=== PATIENT | female | born 1985 | race Caucasian/White ===

== ENCOUNTER 2024-02-06 10:32 | Inpatient (IN) | payer SELFPAY ==
[~2024-02-06] VITALS: Ht 160 cm; Wt 66.7 kg
[2024-02-06] MEDS ORDERED: METHYLERGONOVINE 0.2 MG/ML AMP IM PRN (11:00)
[2024-02-06] MEDS ORDERED: CARBOPROST 250 MCG/ML AMP IM PRN (11:00)
[2024-02-06] MEDS ORDERED: OXYTOCIN 10 UNITS/ML VIAL IM SCH (11:00)
[2024-02-06] MEDS ORDERED: LACTATED RINGERS 500 ML IV ONE (11:00)
[2024-02-06 11:53] LABS: BASOPHILS # (AUTO) 0.1 K/uL (0.00-0.22); BASOPHILS % (AUTO) 0.8 % (0.0-2.0); EOSINOPHILS # (AUTO) 0.1 K/uL (0-0.4); EOSINOPHILS % (AUTO) 0.7 % (0.0-4.0); HEMATOCRIT 37.1 % (36-48); HEMOGLOBIN 12.9 g/dL (12.0-16.0); LYMPHOCYTES # (AUTO) 2.5 K/uL (2.5-16.5); LYMPHOCYTES % (AUTO) 20.4 % (20.5-51.1); MEAN CORPUSCULAR HEMOGLOBIN 32 pg (27-31); MEAN CORPUSCULAR HGB CONC 35 g/dL (33-37); MEAN CORPUSCULAR VOLUME 91.6 fL (80-94); MONOCYTES % (AUTO) 7.9 % (1.7-9.3); NEUTROPHILS # (AUTO) 8.6 K/uL (1.8-7.7); NEUTROPHILS % (AUTO) 70.2 % (42.2-75.2); PLATELET COUNT (AUTO) 229 K/uL (140-450); RED BLOOD CELL COUNT(AUTO) 4.05 MIL/uL (4.20-5.40); RED CELL DISTRIBUTION WIDTH 13.2 % (11.6-13.7); WHITE BLOOD COUNT (AUTO) 12.3 K/uL (4.8-10.8)
[2024-02-06 12:15] LABS: INR 0.84 (0.8-1.2); PARTIAL THROMBOPLASTIN TIME 25.2 secs (22-35.6); PROTHROMBIN TIME 8.9 secs (10.8-13.4)
[2024-02-06 12:17] LABS: ALBUMIN 2.3 g/dL (3.4-5.0); ANION GAP 13.9 (8-16); CALCIUM 8.5 mg/dL (8.5-10.1); CARBON DIOXIDE 21.1 mmol/L (21-32); CREATININE 0.7 mg/dL (0.6-1.3); TOTAL BILIRUBIN 0.1 mg/dL (0.0-1.0); TOTAL PROTEIN, SERUM 6.3 g/dL (6.4-8.2)
[2024-02-06 12:23] LABS: APPEARANCE,URINE CLEAR (CLEAR); BILIRUBIN,URINE NEGATIVE (NEGATIVE); BLOOD, URINE NEGATIVE (NEGATIVE); COLOR,URINE YELLOW (YELLOW); LEUKOCYTE ESTERASE ,URINE NEGATIVE (NEGATIVE); NITRITE, URINE NEGATIVE (NEGATIVE); PROTEIN,URINE NEGATIVE (NEGATIVE); UGLUCOSE NEGATIVE (NEGATIVE); UROBILINOGEN,URINE 0.2 EU/dL (0.2 - 1)
[2024-02-06 12:33] LABS: AMPHETAMINE, URINE NEGATIVE ng/ml (NEG <=1000); BARBITURATE, URINE NEGATIVE ng/ml (NEG <=200); BENZODIAZEPINE, URINE NEGATIVE ng/mL (NEG <=200); CANNABINOID, URINE NEGATIVE ng/mL (NEG <=50); COCAINE, URINE NEGATIVE ng/mL (NEG <=300); OPIATE, URINE NEGATIVE ng/mL (NEG <=2000); PHENCYCLIDINE SCREEN,URINE NEGATIVE ng/mL (NEG <=25)
[2024-02-06] MEDS: LACTATED RINGERS 1,000 ML IV SCH (13:30)
[2024-02-06] MEDS: MISOPROSTOL 25 MCG TAB VG SCH (13:31)
[2024-02-06 16:05] VITALS: BP 97/53; PULSE 77; RESP 18; TEMP 97
[2024-02-06] MEDS ORDERED: OXYTOCIN/0.9 % SODIUM CHLORIDE 500 ML IV ONE (20:13)
[2024-02-06] MEDS: OXYTOCIN/0.9 % SODIUM CHLORIDE 500 ML IV SCH (20:28)
[2024-02-06] MEDS ORDERED: diphenhydrAMINE 50 MG/ML VIAL ONE (22:21)
[2024-02-06] MEDS ORDERED: CITRIC ACID/SODIUM CITRATE 30 ML UDC PO ONE (22:45)
[2024-02-07] MEDS: TERBUTALINE 1 MG/ML VIAL SUBQ SCH (00:06)
[2024-02-07 08:08] LABS: HEPATITIS B SURFACE ANTIGEN Negative (Negative)
[2024-02-07] MEDS ORDERED: fentaNYL citrate 0.05 MG/ML VIAL ONE (10:18)
[2024-02-07] MEDS ORDERED: MORPHINE PRES FREE 5 MG/10 ML AMP IV ONE (10:19)
[2024-02-07] MEDS: ceFAZolin 2,000 MG VIAL ONE (10:30)
[2024-02-07] MEDS ORDERED: KETOROLAC 60 MG/2 ML VIAL IM PRN (11:10)
[2024-02-07] MEDS ORDERED: ONDANSETRON 4 MG/2 ML VIAL IVP PRN (11:10)
[2024-02-07] MEDS: diphenhydrAMINE 50 MG/ML VIAL IVP PRN (11:50)
[2024-02-07] MEDS ORDERED: oxyCODONE/APAP 5/325 MG 1 TAB TAB PO PRN (12:40)
[2024-02-07] MEDS ORDERED: MEASLES, MUMPS, AND RUBELLA 1 VIAL SQVAC ONE (12:40)
[2024-02-07] MEDS ORDERED: METHYLERGONOVINE 0.2 MG/ML AMP IM PRN (12:40)
[2024-02-07] MEDS: KETOROLAC 30 MG/ML VIAL IVP PRN (18:04)
[2024-02-08 05:53] LABS: BASOPHILS % (AUTO) 0.2 % (0.0-2.0); HEMATOCRIT 28.3 % (36-48); HEMOGLOBIN 9.8 g/dL (12.0-16.0); LYMPHOCYTES # (AUTO) 3.1 K/uL (2.5-16.5); LYMPHOCYTES % (AUTO) 12.8 % (20.5-51.1); MEAN CORPUSCULAR HEMOGLOBIN 32 pg (27-31); MEAN CORPUSCULAR HGB CONC 35 g/dL (33-37); MEAN CORPUSCULAR VOLUME 92.3 fL (80-94); MONOCYTES # (AUTO) 1.6 K/uL (0.8-1.0); MONOCYTES % (AUTO) 6.8 % (1.7-9.3); NEUTROPHILS # (AUTO) 19.2 K/uL (1.8-7.7); NEUTROPHILS % (AUTO) 80.2 % (42.2-75.2); PLATELET COUNT (AUTO) 223 K/uL (140-450); RED BLOOD CELL COUNT(AUTO) 3.06 MIL/uL (4.20-5.40); RED CELL DISTRIBUTION WIDTH 13.7 % (11.6-13.7); WHITE BLOOD COUNT (AUTO) 23.9 K/uL (4.8-10.8)
[2024-02-08] MEDS: IBUPROFEN 800 MG TAB PO SCH (09:02)
[2024-02-08] MEDS: bisacodyL 5 MG TABEC PO PRN (09:02)
[2024-02-08] MEDS: SIMETHICONE 80 MG TAB.CHEW PO PRN (09:02)
[2024-02-08] MEDS ORDERED: CAMERA MC ONE ×2 (15:30)
== END 2024-02-08 17:12 | disposition home or self-care (01) | DRG 787 ==
LOC: MFCC 10:32
PROVIDERS: ADMIT Obstetrics & Gynecology; ATTEND Obstetrics & Gynecology
PROC: 10D00Z1 Extraction of Products of Conception, Low, Open Approach (ICD-10-PCS; principal; 2024-02-08)
DX: O36.5930 Maternal care for other known or suspected poor fetal growth, third trimester, not applicable or unspecified (principal); D62 Acute posthemorrhagic anemia; Z37.0 Single live birth; Z3A.38 38 weeks gestation of pregnancy; O61.9 Failed induction of labor, unspecified; O76 Abnormality in fetal heart rate and rhythm complicating labor and delivery; O69.81X0 Labor and delivery complicated by cord around neck, without compression, not applicable or unspecified
CPT/HCPCS: 36415; 59200; 76815; 80053; 80305; 81003; 85025; 85610; 85730; 86592; 86762; 86886; 86900; 86901; 87340; J0690; J1200; J1885; J2210; J2590; J3010; J3105; J7060; J7120; Q0092